=== PATIENT | male | born 1985 | race Caucasian/White ===

== ENCOUNTER 2020-03-12 15:02 | Emergency (ER) | payer OTHER ==
[~2020-03-12] VITALS: Ht 175.3 cm; Wt 86.2 kg
--- NOTE | 2020-03-12 15:50 | NUR ---
[id number], FELL 7FT FROM A LADDER +DEFORMITY ON LLE, -KO. GIVEN 200MG OF FENTANYL & ZOFRAN 4MG IVP, TO ER BED 9, HOOKED TO MONITOR. CHANGED TO HOSP GOWN, LLE KEPT IMMOBILIZED. AWAITING MD RDZ.
--- NOTE | 2020-03-12 16:21 | NUR ---
YEVGENIY VALENCIA AT BEDSIDE
[2020-03-12] MEDS ORDERED: CEFAZOLIN 1 GM in IV D5W 50 ML IV ONE (16:30)
[2020-03-12] MEDS ORDERED: MORPHINE SULFATE INJ 2 MG/ML DISP.SYRIN IV ONE ×3 (16:30→23:00)
[2020-03-12] MEDS ORDERED: MORPHINE SULFATE INJ 2 MG/ML DISP.SYRIN ONE (16:45)
[2020-03-12] MEDS ORDERED: MORPHINE SULFATE INJ 4 MG/ML DISP.SYRIN ONE ×2 (16:46→23:02)
--- NOTE | 2020-03-12 17:02 | NUR ---
YEVGENIY VALENCIA AT BEDSIDE TO EXPALIN PROCEDURE, PATIENT SIGNED CONSENT FOR PROCEDURE AND MODERATE SEDATION
[2020-03-12] MEDS ORDERED: KETAMINE HCL (500MG/10ML) 50 MG/ML VIAL ONE (17:10)
[2020-03-12 17:15] LABS: BASOPHILS # (AUTO) 0.1 /CMM (0.0-0.2); BASOPHILS % (AUTO) 0.4 % (0.0-2.0); EOSINOPHILS % (AUTO) 0.1 % (0.0-6.0); HEMATOCRIT 48 % (39-51); LYMPHOCYTES # (AUTO) 1.1 /CMM (0.8-4.8); LYMPHOCYTES % (AUTO) 7.9 % (20.0-44.0); MEAN CORPUSCULAR HGB CONC 33 g/dl (31.0-36.0); MEAN CORPUSCULAR VOLUME 89 fL (80-96); MONOCYTES # (AUTO) 0.4 /CMM (0.1-1.30); NEUTROPHILS # (AUTO) 12.5 /CMM (1.8-8.9); NEUTROPHILS % (AUTO) 88.6 % (43.0-81.0); PLATELET COUNT (AUTO) 208 /CMM (150-450); RED BLOOD CELL COUNT(AUTO) 5.42 MIL/uL (4.5-6.0); WHITE BLOOD COUNT (AUTO) 14.2 K/uL (4.3-11.0)
[2020-03-12 17:25] LABS: CALCIUM, SERUM 9.6 mg/dL (8.5-10.1); CREATININE 1.2 mg/dL (0.6-1.3); POTASSIUM 4.1 mmol/L (3.5-5.1)
--- NOTE | 2020-03-12 17:54 | NUR ---
post long leg 4 inch, ankle stirrup 3 inch placed at LLE after the closed reduction. CMS intact.
--- NOTE | 2020-03-12 17:57 | NUR ---
PATIENT AWAKE, AAO x 4. FEELING DROWSY. HOOKED TO MONITOR. VSS. WILL CONTINUE TO MONITOR ACCORDINGLY
--- NOTE | 2020-03-12 17:59 | NUR ---
cytogenetics technologist at bedside
[2020-03-12] MEDS ORDERED: KETAMINE HCL (500MG/10ML) 50 MG/ML VIAL IV ONE (18:30)
--- NOTE | 2020-03-12 19:04 | NUR ---
PATIENTY IN BED ASLEEP, EASILY AROUSABLE BY VOICE. HOKKED TO MONITOR.VSS. CMS INTACT AT LLE. WILL CONTINUE TO MONITOR ACCORDINGLY
--- NOTE | 2020-03-12 19:20 | NUR ---
PAGED CHRISTIE EPRP.
[2020-03-12] MEDS ORDERED: ONDANSETRON HCL/PF 4 MG/2 ML VIAL ONE (19:27)
[2020-03-12] MEDS ORDERED: ONDANSETRON HCL/PF 4 MG/2 ML VIAL IV ONE (19:30)
[2020-03-12] MEDS ORDERED: ONDANSETRON 4 MG TAB.RAPDIS PO ONE (19:30)
--- NOTE | 2020-03-12 19:35 | NUR ---
ENDORSEMENT GIVEN TO RANDAL PARKER FOR RADHA
--- NOTE | 2020-03-12 21:05 | NUR ---
PT RESTING COMFORTABLY. VSS.
--- NOTE | 2020-03-12 21:26 | NUR ---
SPOKE TO PT REGARDING PLAN OF CARE. VSS. IN BED RESTING, PROVIDED WITH MORE BLANKETS.
--- NOTE | 2020-03-12 21:29 | NUR ---
BRITTANY (FAMILY FRIEND) CONTACT INFORMATION: [phone]
--- NOTE | 2020-03-12 22:44 | NUR ---
PT accepted to [facility] ER by Dr Delvalle. # for report [phone]. [facility] BLS ambulance eta [id number]
--- NOTE | 2020-03-12 23:17 | NUR ---
REPROT GIVEN TO NEVILLE PARKER FOR RADHA
[2020-03-12 23:18] VITALS: BP 143/99
--- NOTE | 2020-03-12 23:19 | NUR ---
REPORT GIVEN TO WISAM FROM [facility] TRANSFER. PT TRANSFERED.
== END 2020-03-12 23:28 | disposition short-term general hospital (02) ==
LOC: ER 16:42
DX: S82.392B Other fracture of lower end of left tibia, initial encounter for open fracture type I or II (principal); S82.832B Other fracture of upper and lower end of left fibula, initial encounter for open fracture type I or II; W11.XXXA Fall on and from ladder, initial encounter; Y93.H9 Activity, other involving exterior property and land maintenance, building and construction; Y92.017 Garden or yard in single-family (private) house as the place of occurrence of the external cause; Y99.8 Other external cause status; D72.829 Elevated white blood cell count, unspecified; Z20.828 Contact with and (suspected) exposure to other viral communicable diseases
CPT/HCPCS: 27752; 36415; 73560; 73590 ×2; 73600; 73620; 80048; 85025; 85730; 87081; 87426; 96365; 96375; 96376; 99152; 99291; A6403; C9803; J0690; J2270 ×3; J2405; J3490; J7030; J7060; G0500